=== PATIENT | male | born 1950 | race African-American/Black ===

== ENCOUNTER 2021-10-05 07:54 | Outpatient (CLI) | payer MEDICARE | END 2021-10-05 07:55 | disposition home or self-care (01) | LOC: CSHCT 07:54 | PROVIDERS: ATTEND Nurse Practitioner Family | DX: Z12.2 Encounter for screening for malignant neoplasm of respiratory organs (principal); Z87.891 Personal history of nicotine dependence; J44.9 Chronic obstructive pulmonary disease, unspecified | CPT/HCPCS: 71271 ==